=== PATIENT | female | born 2005 | race Caucasian/White ===

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

== ENCOUNTER 2023-03-19 20:18 | Emergency (ER) | payer OTHER, SELFPAY ==
[2023-03-19 20:19] VITALS: BP 116/76; PULSE 96; RESP 18; TEMP 36.4; O2SAT 100; BMI 21.6
--- NOTE | 2023-03-19 20:25 | ED.RN ---
Pt admits to this RN about being suicidal all the time but denies taking too much Benadryl as a suicide attempt. Pt states she is depressed and suicidal all the time and has been for a long time. But pt states she had never attempted to kill herself and denies ever having a plan to kill herself. She states that she was just trying to sleep tonight and took 6 Benadryl instead of her usual 2, i just wanted to sleep.
--- NOTE | 2023-03-19 20:57 | EDS_ITS ---
HPI HPI - Psych History of Present Illness Chief Complaint: Overdose Narrative Narrative: 17-year-old female past medical history of depression for which she takes duloxetine is a student at the [employer]. She is a sophomore. She states that ever since that she returned to school a few weeks ago she has had poor sleep habits. She has been unable to sleep. She states she uses Benadryl on a weekly basis where she usually takes a few tablets to help her sleep. However, she states that she really wanted to sleep this evening so she took 6 tablets. She ended up telling her friend who freaked out and told security. She presents for psychiatric evaluation for suicidal ideation. However, she states that she has had longstanding depression and is not having thoughts of suicide. She denies hallucinations. She states she has never been admitted for psychiatric reasons to a psychiatric facility. She does have previous cutting behavior and has not cut her forearms in months. [facility] Medical History Anxiety Asthma Depression Home Medications duloxetine 20 mg capsule,delayed release 40 mg PO DAILY 03/19/23 [History Last Taken Unknown] Allergy/AdvReac Type Severity Reaction Status Date / Time No Known Allergies Allergy Verified 03/19/23 20:22 Social History Smoking Status: Never smoker ROS ROS ED ROS Narrative Constitutional: No fever, no chills. HEENT: No sore throat. No neck pain. No loss of vision. No rhinorrhea. Cardiovascular: No chest pain. No palpitations. No pedal edema. Respiratory: No cough, no shortness of breath. Abdominal: No abdominal pain. No nausea. No vomiting. Genitourinary: No dysuria. No hematuria. Musculoskeletal: No myalgias. No arthralgias. Neurologic: No headaches. No dizziness. No lightheadedness. Skin: No rash. No change in color. Psychiatric: Positive depression. No anxiety. Denies suicidal ideation or hallucinations. EXAM Physical Exam Narrative Exam Narrative: Afebrile. Vital signs noted. HEENT: Normocephalic. Atraumatic. PERRL, EOMI. Neck soft and supple. No point tenderness or step off. Cardiovascular: Regular rate and rhythm. No murmurs, rubs, or gallops appreciated. Respiratory: No tachypnea. Lungs clear to auscultation bilaterally. Gastrointestinal: Abdomen soft, nontender, with normoactive bowel sounds. No rebound or guarding. Neurological: Awake. Alert. Nonfocal, nonlateralizing. Skin: No rash. Normal color. No pallor. Healed superficial cuts/abrasions to bilateral forearms, no active bleeding. Musculoskeletal: No pedal edema. Full range of motion extremities. Psychiatric: Denies suicidal ideation or homicidal ideation. No active hallucination or internal stimulation. Const Vital Signs: 03/19/23 20:19 Temperature 97.6 F L Temperature Source Oral Pulse Rate 96 Respiratory Rate 18 Blood Pressure 116/76 Blood Pressure Mean 89 Pulse Ox 100 Oxygen Delivery Method Room Air MDM MDM MDM Narrative Medical decision making narrative: Patient is denying suicidal ideation, she states that she took more Benadryl because she really wanted to go to sleep since she has been having poor sleep and not getting enough over the last few weeks. I do feel that she requires a psychiatric evaluation by crisis or social work. Medical clearance labs were obtained. I reviewed her laboratory work and she has normal white count of 8.1, hemoglobin normal at 12.9, hematocrit 41.2, platelet count normal at 166. Negative. Urine for drugs of abuse is also negative. Ethanol level negative. Review of her CMP shows no acute abnormalities except for chloride elevated at 110 which I think is nonspecific, anion gap low at 4. At this point in time, I do feel she is med ically cleared for evaluation by crisis. The patient will be signed out to the oncoming physician for final disposition. Her disposition is currently pending mental health/crisis evaluation. She is in stable condition. History & Record Review Additional record(s) reviewed:: Prior ED visit (Seen for palpitations.) Lab Data Labs: Laboratory Results - last 24 hr 03/19/23 03/19/23 20:42 21:05 WBC 8.1 RBC 4.35 Hgb 12.9 Hct 41.2 MCV 94.7 MCH 29.7 MCHC 31.3 L RDW Std Deviation 46.2 H RDW Coeff of Ruby 13.2 Plt Count 166 MPV 11.3 Immature Gran % (Auto) 0.200 Neut % (Auto) 48.5 Lymph % (Auto) 39.4 Mchenry % (Auto) 8.8 Eos % (Auto) 2.1 Baso % (Auto) 1.0 Absolute Neuts (auto) 3.9 Absolute Lymphs (auto) 3.19 Nucleated RBC % 0 Sodium 141 Potassium 3.7 Chloride 110 H Carbon Dioxide 27.0 Anion Gap 4 L BUN 11 Creatinine 0.66 Estim Creat Clear Calc 108.43 Est GFR (MDRD) Af Amer 146 Est GFR (MDRD) Non-Af 121 BUN/Creatinine Ratio 16.6 Glucose 93 Calcium 9.2 Serum , Qual NEGATIVE Urine Opiates Screen NEGATIVE Urine Methadone Screen NEGATIVE Ur Barbiturates Screen NEGATIVE Ur Phencyclidine Scrn NEGATIVE Ur Amphetamines Screen NEGATIVE MDMA (Ecstasy) Screen NEGATIVE U Benzodiazepines Scrn NEGATIVE Urine Cocaine Screen NEGATIVE U Cannabinoids Screen NEGATIVE Ur Drug Screen Comment Ethyl Alcohol < 3.0 Discharge Plan Triage Chief Complaint: Overdose ED Provider: Diony Mobley Dx/Rx/DC Orders Prescriptions: No Action duloxetine 20 mg capsule,delayed release(DR/EC) 40 mg PO DAILY Patient Comments: TAKE TWO CAPSULES BY MOUTH once a day Primary Care Provider: Charlene Kothari Referrals: Charlene Kothari DO [Primary Care Provider] -
[2023-03-19 21:05] LABS: Absolute Lymphocyte Count 3.19 X10^3/uL (0.83-4.51); Absolute Neutrophil Count 3.9 X10^3/uL (2.0-7.7); Basophil# 0.08 X10^3/uL; Eosinophil# 0.17 X10^3/uL; Eosinophils% 2.1 % (0-5); Hematocrit 41.2 % (37-47); Hemoglobin 12.9 g/dL (12.0-15.0); Lymphocyte # 3.19 X10^3/ul (0.83-4.51); Lymphocyte % 39.4 % (19-41); Mean Corp Hgb Conc 31.3 g/dL (32-36); Mean Corpuscular Hgb 29.7 pg (27.0-32.0); Mean Corpuscular Volume 94.7 fL (81-99); Mean Platelet Vol. 11.3 fl (6.2-12.0); Monocyte# 0.71 X10^3/uL; Monocyte% 8.8 % (0-10); NRBC Flagged by Analyzer 0 % (0-5); Neutrophil # 3.93 X10^3/uL (2.7-7.7); Neutrophil % 48.5 % (47-70); Platelet Count 166 K/mm3 (150-450); RBC Distribution Width CV 13.2 % (11.6-14.6); RBC Distribution Width SD 46.2 fl (35.1-43.9); Red Blood Count 4.35 M/mm3 (4.2-5.4); White Blood Count 8.1 K/mm3 (4.4-11.0)
[2023-03-19 21:20] LABS: Internal QC Validated? YES +Cl - CLEAR BKGD; Pregnancy, Serum, hCG Quali. NEGATIVE Negative
[2023-03-19 21:21] LABS: Alcohol, Blood (Medical)-Serum < 3.0 mg/dL
[2023-03-19 21:22] LABS: Anion Gap 4 (5-15); BUN 11 mg/dL (7-18); BUN/Creat Ratio 16.6 RATIO (10-20); Calcium,Total 9.2 mg/dL (8.5-10.1); Chloride 110 mmol/L (98-107); Creatinine, Serum 0.66 mg/dL (0.55-1.02); EST Glomerular Filtration Rate 121 mL/min (>60); Est Glom Filt Rate - Afr Amer 146 mL/min (>60); Estimated Creatinine Clearance 108.43 ml/min; Glucose 93 mg/dL (74-106); Potassium 3.7 mmol/L (3.5-5.1); Sodium Level 141 mmol/L (136-145)
[2023-03-19 21:40] LABS: Amphetamine Urine VISTA NEGATIVE (<1000 ng/mL); Barbiturate Urine VISTA NEGATIVE (< 200 ng/mL); Benzodiazepine Urine VISTA NEGATIVE (< 200 ng/mL); Cocaine Urine VISTA NEGATIVE (< 300 ng/mL); Ecstacy Urine VISTA NEGATIVE (< 500 ng/mL); Methadone Urine VISTA NEGATIVE (< 300 ng/mL); PCP Urine VISTA NEGATIVE (< 25 ng/mL); THC Urine VISTA NEGATIVE (< 50 ng/mL); Vista UDS pH Range 5
--- NOTE | 2023-03-19 22:10 | NURSING ---
CALLED CRISIS AND FAXED CHART AT [phone]
== END 2023-03-19 23:51 | disposition home or self-care (01) ==
PROVIDERS: Emergency Provider Emergency Medicine; PCP Family Medicine; Visit Provider Emergency Medicine
DX: T45.0X1A Poisoning by antiallergic and antiemetic drugs, accidental (unintentional), initial encounter (principal); F32.A Depression, unspecified; Z79.899 Other long term (current) drug therapy
CPT/HCPCS: 80048; 80307; 82077; 84703; 85025; 87811; 99284